=== PATIENT | male | born 1975 | race Caucasian/White ===

== ENCOUNTER 2017-05-10 09:37 | Emergency (ER) | payer BC ==
[2017-05-10] MEDS ORDERED: Alum Hydrox/Mag Hydrox/Simeth 30 ML, Lidocaine 2% 15 ML PO ONE ×2 (11:09)
[2017-05-10] MEDS ORDERED: Sodium Chloride 0.9% 10 ML Syringe FLUSH PRN (11:09)
[2017-05-10] MEDS ORDERED: Famotidine 20 MG/2 ML SDV IVPUSH ONE (11:09)
--- NOTE | 2017-05-10 11:14 | EDM.PDOC ---
ED HPI GENERAL MEDICAL PROBLEM - General Chief Complaint: Abdominal Pain Stated Complaint: HEART BURN AND VOMITING Time Seen by Provider: 05/10/17 11:00 Source of Information: Reports: Patient History Limitations: Reports: No Limitations - History of Present Illness INITIAL COMMENTS - FREE TEXT/NARRATIVE: 41 year old male presents for evaluation of abdominal pain and heartburn. Patient reports that he has been experiencing heartburn for the last 5 days. Patient reports a burning sensation in the epigastric area into the center of his chest. No radiation to the back, arms or neck. Reports associated symptoms of nausea and globus sensation. He did have one episode of emesis last night. He is unsure if there is been any blood in there. He states he did have a pink or red Cordelia treat prior to the emesis. Reports he is burning sensation when he swallows. No fevers, coughs, colds, shortness of breath or diaphoresis. Reports no history of heartburn. States the pain is worse at night and when he lays flat. Patient denies any cardiac history. He has no family history of any cardiac episodes at a young age. Reports that he chews tobacco. He utilizes one can every 2-3 days. Duration: Day(s): (5) Location: Reports: Chest, Abdomen (epigastric) Treatments REHABILITATION SERVICES AIDE: Reports: Other Medication(s) Upper Abdomen Pain Score (Numeric/FACES): 8 - Related Data Allergies Allergy/AdvReac Type Severity Reaction Status Date / Time No Known Allergies Allergy Verified 05/10/17 10:43 Home Meds: Home Meds Omeprazole 20 mg PO DAILY #30 cap.cr 05/10/17 [Rx] Past Medical History HEENT History: Reports: Impaired Vision - Past Surgical History Musculoskeletal Surgical History: Reports: Arthroscopic Knee Social & Family History - Tobacco Use Smoking Status *Q: Never Smoker Second Hand Smoke Exposure: No - Caffeine Use Caffeine Use: Reports: Coffee - Recreational Drug Use Recreational Drug Use: No ED ROS GENERAL - Review of Systems Review Of Systems: See Below Constitutional: Denies: Fever, Diaphoresis, Decreased Appetite Respiratory: Denies: Cough Cardiovascular: Reports: Chest Pain (substernal) GI/Abdominal: Reports: Abdominal Pain (epigastric), Nausea, Vomiting (x1), Other (reports heartburn). Denies: Hematemesis Musculoskeletal: Denies: Neck Pain, Arm Pain, Back Pain ED EXAM, GI/ABD - Physical Exam Exam: See Below Exam Limited By: No Limitations General Appearance: Alert, WD/WN, No Apparent Distress Ears: Normal External Exam Nose: Normal Inspection Throat/Mouth: Normal Inspection, Normal Lips, Normal Oropharynx, Normal Voice, No Airway Compromise Neck: Normal Inspection Respiratory/Chest: No Respiratory Distress, Lungs Clear, Normal Breath Sounds Cardiovascular: Normal Peripheral Pulses, Regular Rate, Rhythm, No Murmur GI/Abdominal Exam: Normal Bowel Sounds, Soft, Non-Tender, Tender Back Exam: Normal Inspection Neurological: Alert, Oriented, Normal Cognition Psychiatric: Normal Affect, Normal Mood Skin Exam: Warm, Dry, Normal Color EKG INTERPRETATION EKG Date: 05/10/17 Time: 11:30 Rhythm: NSR Rate (Beats/Min): 66 [place]: Normal P-Wave: Present QRS: Normal ST-T: Normal QT: Normal EKG Interpretation Comments: NSR at 66 bpm. First degree AV block. J-point elevation in the inferior leads but no ischemia. Reviewed by myself and Dr. Matthews. Course - Vital Signs Last Recorded V/S: Last Vital Signs Temp 36.3 C 05/10/17 09:47 Pulse 75 05/10/17 09:47 Resp 16 05/10/17 09:47 BP 141/97 H 05/10/17 09:47 Pulse Ox 10 L 05/10/17 09:47 - Orders/Labs/Meds Orders: Active Orders 24 hr Category Date Time Status Cardiac Monitoring [RC] . DIRECTED Care 05/10/17 11:09 Ordered EKG 12 Lead [EKG Documentation Completion] [RC] STAT Care 05/10/17 11:08 Ordered Peripheral IV Care [RC] . DIRECTED Care 05/10/17 11:09 Ordered Chest 1V Frontal [CR] Stat Exams 05/10/17 11:09 Ordered Sodium Chloride 0.9% [Saline Flush] Med 05/10/17 11:09 Ordered 10 ml FLUSH ASDIRECTED PRN Peripheral IV Insertion Adult [OM.PC] Routine Oth 05/10/17 11:08 Ordered Medication Orders Sodium Chloride (Saline Flush) 10 ml FLUSH ASDIRECTED PRN PRN Reason: Keep Vein Open Last Admin: 05/10/17 11:40 Dose: 10 ml Labs: Laboratory Tests 12/20/17 12/20/17 Range/Units 11:41 11:41 WBC 8.70 (4.23-9.07) K/mm3 RBC 5.31 (4.63-6.08) M/mm3 Hgb 16.0 (13.7-17.5) gm/L Hct 47.2 (40.1-51.0) % MCV 88.9 (79.0-92.2) fl MCH 30.1 (25.7-32.2) pg MCHC 33.9 (32.2-35.5) g/dl RDW Std Deviation 43.3 (35.1-43.9) fL Plt Count 283 (163-337) K/mm3 MPV 9.2 L (9.4-12.3) fl Neutrophils % (Manual) 64 H (40-60) % Band Neutrophils % 0 (0-10) % Lymphocytes % (Manual) 32 (20-40) % Atypical Lymphs % 0 % Monocytes % (Manual) 4 (2-10) % Eosinophils % (Manual) 0 L (0.8-7.0) % Basophils % (Manual) 0 L (0.2-1.2) Platelet Estimate Adequate RBC Morph Comment Normal Sodium 139 (136-145) mEq/L Potassium 4.2 (3.5-5.1) mEq/L Chloride 104 (98-107) mEq/L Carbon Dioxide 26 (21-32) mEq/L Anion Gap 13.2 (5-15) BUN 22 H (7-18) mg/dL Creatinine 1.0 (0.7-1.3) mg/dL Est Cr Clr Drug Dosing 115.01 mL/min Estimated GFR (MDRD) > 60 (>60) mL/min BUN/Creatinine Ratio 22.0 H (14-18) Glucose 96 (74-106) mg/dL Calcium 9.1 (8.5-10.1) mg/dL Total Bilirubin 0.7 (0.2-1.0) mg/dL AST 15 (15-37) U/L ALT 31 (16-63) U/L Alkaline Phosphatase 79 (46-116) U/L CK-MB (CK-2) < 0.5 (0-3.6) ng/ml Troponin I < 0.017 (0.00-0.056) ng/mL Total Protein 7.2 (6.4-8.2) g/dl Albumin 4.1 (3.4-5.0) g/dl Globulin 3.1 gm/dL Albumin/Globulin Ratio 1.3 (1-2) Lipase 160 (73-393) U/L Meds: Medications Generic Name Dose Route Start Last Admin Trade Name Freq PRN Reason Stop Dose Admin Sodium Chloride 10 ml 05/10/17 11:09 05/10/17 11:40 Saline Flush FLUSH 10 ml ASDIRECTED PRN Administration Keep Vein Open Discontinued Medications Generic Name Dose Route Start Last Admin Trade Name Freq PRN Reason Stop Dose Admin Al Hydroxide/Mg Hydroxide 30 0 ml 05/10/17 11:09 05/10/17 11:39 ml/ Lidocaine HCl 15 ml PO 05/10/17 11:10 45 ml ONETIME ONE Administration Famotidine 20 mg 05/10/17 11:09 05/10/17 11:41 Pepcid IVPUSH 05/10/17 11:10 20 mg ONETIME ONE Administration - Radiology Interpretation Free Text/Narrative:: Chest x-ray shows no acute intrathoracic process. Formal radiology read is pending. - Re-Assessments/Exams Free Text/Narrative Re-Assessment/Exam: 05/10/17 12:48 I reviewed the chest x-ray, EKG and lab results with the patient. He reports that his heartburn has improved after the GI cocktail and Pepcid. Will start him on omeprazole daily. Have him follow-up in about 2 weeks for recheck of his symptoms. Discharge instructions as documented. Departure - Departure Time of Disposition: 12:49 Disposition: Home, Self-Care 01 Condition: Good Clinical Impression: GERD (gastroesophageal reflux disease) - Discharge Information Prescriptions: Omeprazole 20 mg PO DAILY #30 cap.cr Instructions: Food Choices for Gastroesophageal Reflux Disease, Adult, Gastroesophageal Reflux Disease, Adult Referrals: PCP,None [Primary Care Provider] - Brennon Chen [Physician] - Forms: ED Department Discharge Additional Instructions: Take the omeprazole 1 tab daily. you may take [id number] Tums, Rolaids, etc. in the meantime to help with symptoms. Your prescription has been escribed to [facility]. Recommend follow-up with a primary care provider in 2 weeks for recheck of your symptoms. If you do not have one, recommend Dr. Mckinney. Please call to schedule with him. Please return to the ER if your symptoms change or worsen. - My Orders Last 24 Hours: My Active Orders 05/10/17 11:08 EKG 12 Lead [EKG Documentation Completion] [RC] STAT Peripheral IV Insertion Adult [OM.PC] Routine 05/10/17 11:09 Cardiac Monitoring [RC] . DIRECTED Peripheral IV Care [RC] . DIRECTED Chest 1V Frontal [CR] Stat Sodium Chloride 0.9% [Saline Flush] 10 ml FLUSH ASDIRECTED PRN - Assessment/Plan Last 24 Hours: My Active Orders 05/10/17 11:08 EKG 12 Lead [EKG Documentation Completion] [RC] STAT Peripheral IV Insertion Adult [OM.PC] Routine 05/10/17 11:09 Cardiac Monitoring [RC] . DIRECTED Peripheral IV Care [RC] . DIRECTED Chest 1V Frontal [CR] Stat Sodium Chloride 0.9% [Saline Flush] 10 ml FLUSH ASDIRECTED PRN
--- NOTE | 2017-05-10 15:15 | CR ---
Chest: Portable view of the chest was obtained. Comparison: No prior study. Heart size and mediastinum are normal. Lungs are clear. Bony structures are grossly intact. Impression: 1. Nothing acute is identified on portable chest x-ray. Diagnostic code #1
== END 2017-05-10 13:11 | disposition home or self-care (01) ==
LOC: JD.ED 09:37
DX: K21.9 Gastro-esophageal reflux disease without esophagitis (principal); Z79.899 Other long term (current) drug therapy
CPT/HCPCS: 36415; 71010; 80053; 82553; 83690; 84484; 85025; 93005; 96374; 99284; A9270; J7050; 93010

== ENCOUNTER 2022-12-04 16:26 | Emergency (ER) | payer BC ==
[2022-12-04] MEDS ORDERED: Sodium Chloride 0.9% 10 ML Syringe FLUSH PRN (17:00)
[2022-12-04] MEDS ORDERED: Metoclopramide 10 MG/2 ML SDV IVPUSH ONE (17:00)
[2022-12-04] MEDS ORDERED: Glucagon,Human Recombinant 1 MG Vial IVPUSH ONE (17:00)
[2022-12-04] MEDS ORDERED: fentaNYL 100 MCG/2 ML SDV IVPUSH ONE (17:00)
[2022-12-04] MEDS ORDERED: HYDROmorphone 1 MG/ML Syringe IVPUSH STA (18:20)
[2022-12-04] MEDS ORDERED: Sodium Chloride 0.9% 1,000 ML IV ONE (19:14)
[2022-12-04 19:20] LABS: BASOPHILS ABSOLUTE AUTO 0.01 K/mm3 (0.01-0.08); BASOPHILS PERCENT AUTO 0.1 % (0.1-1.2); EOSINOPHILS ABSOLUTE AUTO 0.03 K/mm3 (0.04-0.54); EOSINOPHILS PERCENT AUTO 0.3 (0.8-7.0); HEMOGLOBIN 16.4 gm/dl (13.7-17.5); IMMATURE GRAN ABSOLUTE AUTO 0.01 K/mm3 (0.00-0.10); IMMATURE GRAN PERCENT AUTO 0.1 % (<=1.0); LYMPHOCYTES ABSOLUTE AUTO 1.03 K/mm3 (1.32-3.57); LYMPHOCYTES PERCENT AUTO 9.6 % (21.8-53.1); MEAN CORPUSCULAR HEMOGLOBIN 30.3 pg (25.7-32.2); MEAN CORPUSCULAR HGB CONC 34.2 g/dl (32.2-35.5); MEAN CORPUSCULAR VOLUME 88.6 fl (79.0-92.2); MEAN PLATELET VOLUME 9.7 fl (9.4-12.3); MONOCYTES ABSOLUTE AUTO 0.93 K/mm3 (0.30-0.82); MONOCYTES PERCENT AUTO 8.7 % (5.3-12.2); NEUTROPHILS ABSOLUTE AUTO 8.71 K/mm3 (1.78-5.38); NEUTROPHILS PERCENT AUTO 81.2 % (34.0-67.9); PLATELET COUNT,PLT 284 K/mm3 (163-337); RED BLOOD CELL COUNT 5.42 M/mm3 (4.63-6.08); WHITE BLOOD CELL COUNT,WBC 10.72 K/mm3 (4.23-9.07)
[2022-12-04 19:29] LABS: A/G RATIO 1.1 (1-2); ALANINE AMINOTRANSFERASE,ALT 27 U/L (16-63); ALBUMIN 3.9 g/dl (3.4-5.0); ALKALINE PHOSPHATASE 99 U/L (46-116); ANION GAP 14.3 (5-15); ASPARTATE AMNIOTRANSFERASE,AST 20 U/L (15-37); BILIRUBIN TOTAL 0.7 mg/dL (0.2-1.0); BLOOD UREA NITROGEN,BUN 17 mg/dL (7-18); BUN/CREATININE RATIO 15.5 (14-18); C-REACTIVE PROTEIN 2.5 mg/dL (<1.0); CALCIUM 8.8 mg/dL (8.5-10.1); CARBON DIOXIDE,CO2 27 mEq/L (21-32); CHLORIDE,CL 101 mEq/L (98-107); CREATININE 1.1 mg/dL (0.7-1.3); ESTIMATED GFR 83 mL/min (>60); GLUCOSE RANDOM 126 mg/dL (70-99); POTASSIUM,K 4.3 mEq/L (3.5-5.1); PROTEIN TOTAL,TP 7.5 g/dl (6.4-8.2); SODIUM,NA 138 mEq/L (136-145)
[2022-12-04] MEDS ORDERED: Iopamidol 612 MG/ML 100 ML Bottle IVPUSH ONE (20:11)
[2022-12-04] MEDS ORDERED: HYDROmorphone 0.5 MG/0.5 ML Syringe IVPUSH ONE ×2 (20:33→22:15)
== END 2022-12-04 23:35 ==
LOC: JD.ED 16:26
DX: K44.9 Diaphragmatic hernia without obstruction or gangrene (principal)
CPT/HCPCS: 36415; 71260; 74177; 80053; 85025; 86140; 96361; 96374; 96375; 96376; 99285; J1170; J1610; J2765; J3010; J3490; J7030; Q9967

== ENCOUNTER 2024-02-09 22:27 | Emergency (ER) | payer BC ==
[2024-02-09 23:00] LABS: BASOPHILS ABSOLUTE AUTO 0.1 K/mm3 (0.0-0.2); BASOPHILS PERCENT AUTO 0.8 % (0.0-1.0); EOSINOPHILS ABSOLUTE AUTO 0.5 K/mm3 (0.0-0.4); EOSINOPHILS PERCENT AUTO 6.3 % (0.0-6.0); HEMATOCRIT 42.1 % (42.0-52.0); HEMOGLOBIN 14.5 gm/dl (14.0-18.0); IMMATURE GRAN ABSOLUTE AUTO 0.02 K/mm3 (0.00-0.05); IMMATURE GRAN PERCENT AUTO 0.3 % (0.0-0.4); LYMPHOCYTES ABSOLUTE AUTO 2.2 K/mm3 (1.0-4.8); LYMPHOCYTES PERCENT AUTO 27.6 % (24.0-44.0); MEAN CORPUSCULAR HEMOGLOBIN 30.1 pg (28.0-32.0); MEAN CORPUSCULAR HGB CONC 34.4 g/dl (32.0-36.0); MEAN CORPUSCULAR VOLUME 87.3 fl (83.0-99.0); MEAN PLATELET VOLUME 9.5 fl (9.4-12.4); MONOCYTES ABSOLUTE AUTO 0.7 K/mm3 (0.0-0.8); MONOCYTES PERCENT AUTO 8.2 % (0.0-8.0); NEUTROPHILS ABSOLUTE AUTO 4.5 K/mm3 (1.8-7.7); NEUTROPHILS PERCENT AUTO 56.8 % (41.0-71.0); PLATELET COUNT,PLT 260 K/mm3 (150-400); RED BLOOD CELL COUNT 4.82 M/mm3 (4.52-5.90); WHITE BLOOD CELL COUNT,WBC 7.91 K/mm3 (3.9-11.3)
[2024-02-09] MEDS: Sodium Chloride 0.9% 1,000 ML IV ONE (23:12)
[2024-02-09] MEDS: Ketorolac 15 MG/ML SDV IVPUSH ONE (23:13)
[2024-02-09 23:16] LABS: A/G RATIO 1.1 (1-2); ALANINE AMINOTRANSFERASE,ALT 22 U/L (16-63); ALBUMIN 3.7 g/dl (3.4-5.0); ALKALINE PHOSPHATASE 115 U/L (46-116); ANION GAP 15.9 (5-15); ASPARTATE AMNIOTRANSFERASE,AST 15 U/L (15-37); BILIRUBIN TOTAL 0.3 mg/dL (0.2-1.0); BLOOD UREA NITROGEN,BUN 17 mg/dL (7-18); CALCIUM 9.2 mg/dL (8.5-10.1); CARBON DIOXIDE,CO2 25 mEq/L (21-32); CHLORIDE,CL 104 mEq/L (98-107); ESTIMATED GFR 92 mL/min (>60); GLUCOSE RANDOM 94 mg/dL (70-99); LIPASE 29 U/L (16-77); POTASSIUM,K 3.9 mEq/L (3.5-5.1); PROTEIN TOTAL,TP 7.2 g/dl (6.4-8.2); SODIUM,NA 141 mEq/L (136-145)
[2024-02-09 23:19] LABS: TROPONIN I HIGH SENSITIVITY < 4 pg/mL (<=76)
[2024-02-09] MEDS: Sodium Chloride 0.9% 10 ML Syringe FLUSH PRN (23:36)
[2024-02-09] MEDS: Iopamidol 612 MG/ML 30 ML SDV IVPUSH ONE (23:36)
[2024-02-09] MEDS ORDERED: Naloxone 0.4 MG/ML SDV IVPUSH PRN (23:56)
[2024-02-10] LABS: APPEARANCE,URINE CLEAR (Clear); BILIRUBIN,URINE NEGATIVE (Negative); COLOR,URINE YELLOW (Yellow); GLUCOSE,URINE NEGATIVE (Negative); KETONES,URINE NEGATIVE (Negative); LEUKOCYTE ESTERASE,URINE NEGATIVE (Negative); NITRITE,URINE NEGATIVE (Negative); OCCULT BLOOD,URINE TRACE-INTACT (Negative); PROTEIN,URINE NEGATIVE (Negative); UROBILINOGEN,URINE 0.2 (0.2-1.0)
[2024-02-10] MEDS: HYDROmorphone 1 MG/ML Syringe IVPUSH ONE (00:02)
[2024-02-10 00:23] LABS: BACTERIA,URINE RARE /hpf (FEW); EPITHELIAL CELLS,URINE 0-5 /hpf (0-5); MUCUS,URINE NOT SEEN /hpf (FEW); RBC,URINE 0-5 /hpf (0-5); WBC,URINE 0-5 /hpf (0-5)
== END 2024-02-10 01:31 | disposition home or self-care (01) ==
LOC: JD.ED 22:27
DX: R10.84 Generalized abdominal pain (principal); R07.81 Pleurodynia
CPT/HCPCS: 36415; 71101; 74177; 80053; 81001; 83690; 84484; 85025; 93005; 96374; 96375; 99284; J1170; J1885; J3490; J7030; Q9967; 93010; 99283